=== PATIENT | female | born 1990 | race Caucasian/White ===

== ENCOUNTER 2017-02-27 18:54 | Emergency (ER) | payer OTHER ==
[2017-02-27] MEDS ORDERED: ONDANSETRON 4 MG/2 ML VIAL ONE (20:44)
--- NOTE | 2017-02-27 20:50 | EDPHY ---
H & P Time Seen by Provider: 02/27/17 20:33 HPI/ROS: Chief complaint. CHIEF COMPLAINT: Abdominal pain HPI. 26-year-old female presents emergency department nausea vomiting diarrhea that began this morning. She has sick coworkers. Her symptoms are worse with trying to eat. She can't keep fluids down. She has some epigastric pain described as sharp radiating through to her back. No previous abdominal surgery. She is concerned about dehydration. ROS Constitutional. no fever/chills, no weakness Eyes. no problems with vision ENT. no sore throat, no nasal drainage Cardiovascular. no chest pain Respiratory. no shortness of breath, no cough Abdominal. Upper abdominal pain with nausea vomiting and diarrhea . no problems urinating MS. no calf pain/swelling, no neck/back pain, no joint pain Skin. no rash Lymph. no swollen glands Neuro. no headache, no dizziness, no difficulty walking or with speech Past Medical/Surgical History: Healthy Social History: Single, daily smoker, no alcohol Smoking Status: Current every day smoker Physical Exam: General Appearance: Alert well-developed female mild distress vital signs are stable Eyes: Pupils equal and round no pallor or injection. ENT, mucous membranes are dry Respiratory: There are no retractions, lungs are clear to auscultation. Cardiovascular: Regular rate and rhythm. Gastrointestinal: Mild epigastric tenderness. No masses. Normal bowel sounds Neurological: Awake and alert, sensory and motor exams grossly normal. Skin: Warm and dry, no rashes. Musculoskeletal: Neck is supple nontender. Extremities symmetrical, full range of motion. Psychiatric: Patient is oriented X 3, there is no agitation. Constitutional: Initial Vital Signs Temperature (C) 36.6 C 02/27/17 18:57 Heart Rate 96 02/27/17 18:57 Respiratory Rate 18 02/27/17 18:57 Blood Pressure 112/65 02/27/17 18:57 O2 Sat (%) 98 02/27/17 18:57 O2 Delivery Mode Room Air Allergies/Adverse Reactions: Penicillins Allergy (Intermediate, Verified 02/27/17 19:01) Hives Sulfa (Sulfonamide Antibiotics) Allergy (Intermediate, Verified 02/27/17 19:01) Hives Home Medications: Medication Instructions Recorded Ondansetron Odt [Zofran Odt] 4 mg PO Q4PRN PRN #4 tab 02/27/17 Medical Decision Making Procedures: IV normal saline. Zofran IV ED Course/Re-evaluation: Oral challenge in-patient able to keep fluids down without nausea or vomiting. Patient and I discussed laboratory evaluation, treatment plan, criteria for return come ports follow-up further evaluation. She expresses understanding and agreement Differential Diagnosis: This likely gastroenteritis type syndrome. Likely viral etiology such as normal virus. Sick coworkers. Patient has mild dehydration. I considered electrolyte abnormalities as well as pancreatitis, appendicitis, - Data Points Laboratory Results: Laboratory Results 02/27/17 20:50 02/27/17 20:50 02/27/17 02/27/17 02/27/17 20:50 20:50 20:50 WBC 15.77 10^3/uL H 10^3/uL (3.80-9.50) RBC 5.01 10^6/uL 10^6/uL (4.18-5.33) Hgb 15.7 g/dL g/dL (12.6-16.3) Hct 44.3 % % (38.0-47.0) MCV 88.4 fL fL (81.5-99.8) MCH 31.3 pg pg (27.9-34.1) MCHC 35.4 g/dL g/dL (32.4-36.7) RDW 12.1 % % (11.5-15.2) Plt Count 362 10^3/uL 10^3/uL (150-400) MPV 9.4 fL fL (8.7-11.7) Neut % (Auto) 92.0 % H % (39.3-74.2) Lymph % (Auto) 2.9 % L % (15.0-45.0) [place] % (Auto) 4.0 % L % (4.5-13.0) Eos % (Auto) 0.4 % L % (0.6-7.6) Baso % (Auto) 0.3 % % (0.3-1.7) Nucleat RBC Rel Count 0.0 % % (0.0-0.2) Absolute Neuts (auto) 14.51 10^3/uL H 10^3/uL (1.70-6.50) Absolute Lymphs (auto) 0.46 10^3/uL L 10^3/uL (1.00-3.00) Absolute Monos (auto) 0.63 10^3/uL 10^3/uL (0.30-0.80) Absolute Eos (auto) 0.06 10^3/uL 10^3/uL (0.03-0.40) Absolute Basos (auto) 0.04 10^3/uL 10^3/uL (0.02-0.10) Absolute Nucleated RBC 0.00 10^3/uL 10^3/uL (0-0.01) Immature Gran % 0.4 % % (0.0-1.1) Immature Gran # 0.07 10^3/uL 10^3/uL (0.00-0.10) Sodium 139 mEq/L mEq/L (134-144) Potassium 3.8 mEq/L mEq/L (3.5-5.2) Chloride 102 mEq/L mEq/L (97-110) Carbon Dioxide 22 mEq/l mEq/l (22-31) Anion Gap 15 mEq/L mEq/L (8-16) BUN 12 mg/dL mg/dL (7-23) Creatinine 0.8 mg/dL mg/dL (0.6-1.0) Estimated GFR > 60 Glucose 112 mg/dL H mg/dL (70-100) Calcium 9.4 mg/dL mg/dL (8.5-10.4) Lipase 98 IU/L IU/L (23-300) Beta HCG, Qual NEGATIVE Medications Given: Discontinued Medications Sodium Chloride (Ns) 1,000 mls @ 0 mls/hr IV ONCE ONE PRN Reason: Wide Open Stop: 02/27/17 20:56 Last Admin: 02/27/17 20:57 Dose: 1,000 mls Sodium Chloride (Ns) 1,000 mls @ 0 mls/hr IV EDNOW ONE; Wide Open PRN Reason: Protocol Stop: 02/27/17 21:16 Last Admin: 02/27/17 21:43 Dose: 1,000 mls Ondansetron HCl (Zofran) 4 mg IVP EDNOW ONE Stop: 02/27/17 20:56 Last Admin: 02/27/17 20:57 Dose: 4 mg Departure - Departure Disposition: Home, Routine, Self-Care Clinical Impression: Gastroenteritis Condition: Good Instructions: Gastroenteritis (ED), Dehydration (ED) Additional Instructions: Frequent, small sips fluids. Gradual diet advancement. Zofran 1 pill every 3- 4 hours as needed for nausea vomiting. Return for worsening symptoms. Recheck in 1-2 days for continuing symptoms Referrals: NONE *PRIMARY CARE P,. [Primary Care Provider] - As per Instructions Prescriptions: Ondansetron Odt [Zofran Odt] 4 mg PO Q4PRN PRN #4 tab PRN Reason: Nausea/Vomiting, Use 1st
[2017-02-27] MEDS ORDERED: ONDANSETRON 4 MG/2 ML VIAL IVP ONE (20:55)
[2017-02-27] MEDS ORDERED: NS 1,000 ML IV ONE ×2 (20:55→21:15)
[2017-02-27 21:02] VITALS: TEMP 99
[2017-02-27 21:28] LABS: PLATELET COUNT 362 10^3/uL (150-400)
[2017-02-27] MEDS ORDERED: ONDANSETRON 4MG PREPACK#2 BTL TAKEHOME ONE (22:48)
[2017-02-27 23:06] VITALS: BP 115/67; PULSE 88; RESP 16; O2SAT 98
== END 2017-02-27 23:05 | disposition home or self-care (01) ==
DX: K52.9 Noninfective gastroenteritis and colitis, unspecified (principal); F17.200 Nicotine dependence, unspecified, uncomplicated; E86.9 Volume depletion, unspecified
CPT/HCPCS: 96374; J2405